=== PATIENT | male | born 1940 | race Caucasian/White ===

== ENCOUNTER 2024-02-13 16:26 | Inpatient (IN) | payer MEDICARE, OTHER, SELFPAY ==
[2024-02-13] VITALS (9 sets, daily range): BP systolic 153–192; BP diastolic 69–86; PULSE 66–74; BMI 31.1; BMI 32.7
--- NOTE | 2024-02-13 14:26 | CON.NEURO ---
Neuro Assessment/Plan
Assessment
IMPRESSIONS/RECOMMENDATIONS:
Abrupt change in speech and light-headedness
? metabolic abnormalities or blood pressure significant changes
no clear focal symptomatology suggestive of stroke. Severity of current speech difficulty is best described as minimal
Plan
Check CAT scan of head (completed)
No clear indication patient would benefit from CT angiogram at this time as the patient's symptomatology would not clearly warrant thrombectomy
Severity of symptoms also would not significantly warrant use of tenecteplase
Check orthostatics
Check blood work for potential metabolic causes
Consider outpatient speech evaluation
Not clear patient should have continued discontinuance of apixaban, discontinued due to plan for shoulder surgery; would not delay shoulder surgery as planned from neurological perspective
Will continue to follow pending results. Thank you.
Consultation
Order
Date of Consultation: 02/13/24
Requesting Provider: Emergency department physician
Reason for Consult: Stroke alert
Subjective/Objective
Subjective Data
Date of Service: February 13, 2024
Left-handed
Patient presented to this hospital's emergency department after sudden onset of speech change. The patient's history is obtained after review of the patient's medical records, discussion with the patient and his who is at bedside. The patient
had been in his usual state of health until several days ago at which time he was diagnosed as having a likely left septic effusion which is planned to be treated by means of surgical intervention in the next 48 hours. As the patient was utilizing
apixaban recently, discontinuance of this therapy within the last 48 hours was undertaken due to the plan for surgery.
In the past 3 hours (approximately 1300 hrs.), the patient began experiencing episodic dizziness associated with decreased speech clarity. The patient has not had prior episodes of either symptomatology previously.
Objective Data
Vital Signs
Pulse Resp Pulse Ox
75 18 98
02/13/24 14:12 02/13/24 14:12 02/13/24 14:12
Patient Allergies
vancomycin Allergy (Verified 02/13/24 14:14)
Unknown
Review of Systems
-
History Source: Patient
All other systems: Reviewed and negative
EENT: Negative Swallowing Difficulty
Respiratory: Negative Trouble Breathing
Cardiac: Negative Chest Pain
Neuro: Dizzy; Negative Headache
Physical Exam
-
General: No Apparent Distress and Appears Stated Age
Eyes: OU Absent Papilledema, Round OU, Avimor Conjunctivae and No Ptosis
HEENT: Anicteric and Moist Mucous Membranes
Neck: Full Range of Motion
Respiratory: No Dyspnea
Cardiac: No JVD
GI: Non-distended
Skin: Other (Surgical scar over left rotator cuff)
Extremities: No Clubbing, No Cyanosis, No Edema and Other (Chronic venous stasis changes bilaterally in lower extremities distally)
Psych: Intact Judgement/Insight
Extended Neurological Exam
Mood & Affect: Mood Unremarkable and Affect Unremarkable
Attention Span & Concentration: Awake, Alert, Interactive and Mild Difficulty with 2 Step Request
Memory: Unremarkable
Tremor: Hand Tremor Absent and Head Tremor Absent
Speech: Quality Unremarkable and Quantity Unremarkable
Cranial Nerve II: Left Eye: Pupillary Reactivity Unremarkable, Pupillary Size Unremarkable and Visual Mcmanus Intact
Cranial Nerve II: Right Eye: Pupillary Reactivity Unremarkable, Pupillary Size Unremarkable and Visual Mcmanus Intact
Cranial Nerves III, IV, : Extraocular Movement: Extraocular Movement Full in all Directions
Cranial Nerve VII: Facial Symmetry: Normal Facial Symmetry
Cranial Nerve VIII: Hearing: Unremarkable Hearing to Normal Conversational Volume
Cranial Nerves IX, X: Palate Movement: Palate Elevation Symmetric
Cranial Nerve XI: Shoulder Shrug: Unremarkable
Cranial Nerve XII: Tongue Protusion: Midline
Muscle Strength, Overall: Full Throughout
Muscle Bulk & Tone: Bulk Unremarkable and Tone Unremarkable
Pronator Drift: No Drift in Upper Extremities
Touch Sensation: Unremarkable
Coordination: [id number] Testing Unremarkable
Gait & Station: Up from Seated Without Problem
Data Reviewed
-
CT Head: Report Reviewed and Image Reviewed
Labs: Report Reviewed
Reviewed with: Physician, Nurse, Patient and Family
Old Records: Summarized
Medications
-
Home Medications
�Medication �Instructions �Recorded
celecoxib 100 mg capsule (Celebrex) 200 mg PO DAILY 04/21/14
levothyroxine 25 mcg tablet 50 mcg PO DAILY 04/21/14
(Synthroid)
meclizine 25 mg tablet 25 mg PO DAILY #30 tabs 04/21/14
metoprolol succinate 50 mg 50 mg PO DAILY 04/21/14
tablet,extended release 24 hr
simvastatin 20 mg tablet 20 mg PO DAILY 04/21/14
warfarin 7.5 mg tablet (Jantoven) 7 mg PO DAILY 04/21/14
penicillin V potassium 500 mg 500 mg PO QID ##56 07/12/15
tablet
hydrocodone 5 mg-acetaminophen 325 1 ea PO Q4HPRN PRN pain #15 tabs 06/20/19
mg tablet ([place])
lidocaine 4 % topical patch 1 patch topical BID PRN pain #10 ea 10/09/22
prednisone 20 mg tablet 40 mg (2 x 20 mg) PO DAILY 4 days 10/09/22
#8 tabs
Past History
Past History
ED Past Medical History: Arrthythmia, HTN, Hypercholesterolemia, [place], Hypothyroidism and Other (sepsis)
ED Past Surgical History: Cardiac (Aortic aneurysm root repair October 2002) and Other (Arthroscopy, bilat knee replacements, left rotator cuff repair. Hernia repair)
Social History
Tobacco: Non-smoker
Alcohol: Occasional
Personal:
Living: with family
Family History
Family History: Other
--- NOTE | 2024-02-13 14:45 | ED.CVA ---
History of Present Illness
General
Chief Complaint: CVA/TIA Symptoms
Time Seen by Provider: 02/13/24 14:33
Onset of Stroke Symptoms
Onset of symptoms known: Yes
Date of onset of symptoms: 02/13/24
Time of onset of symptoms: 13:00
Travel History
Have you had any contact with someone who has COVID-19?: No
Do you have any symptoms of coronavirus? Fever > 100 degrees, chills, cough, shortness of breath, sore throat, loss of taste or smell, muscle aches, or headache?: No
History of Present Illness
History of Present Illness:
Patient presents the emergency department with lightheadedness and slurred speech that is now resolved. States symptoms started around 1 PM today. He denies any visual changes difficulty swallowing. Denies any headache or neck pain. Denies
extremity weakness or clumsiness. Stroke alert called upon arrival to the emergency department patient evaluated by neurology.
Past History
Past History
ED Past Medical History: Arrthythmia, HTN, Hypercholesterolemia, [place], Hypothyroidism and Other (sepsis)
ED Past Surgical History: Cardiac (Aortic aneurysm root repair October 2002) and Other (Arthroscopy, bilat knee replacements, left rotator cuff repair. Hernia repair)
Social History
Tobacco: Non-smoker
Alcohol: Occasional
Personal:
Living: with family
Family History
Family History: Other
Phy Exam
Physical Exam
Physical Exam:
GENERAL APPEARANCE: NAD, well developed/ well nourished
EYES lids/conjunctiva normal
EARS/NOSE/THROAT Mucous membranes moist, uvula midline without oral pharyngeal erythema, exudate or swelling
HEAD/NECK normocephalic atraumatic, neck is supple.
RESPIRATORY respiratory effort normal, speaks in full sentences, no accessory muscle use. Lungs clear to auscultation without rhonchi, wheezes, rales
CARDIAC Regular rate and rhythm, no edema.
ABDOMINAL Soft, ND/NT. No pulsatile masses on exam, rebound tenderness, Sanchez sign or pain over Mcburney's point.
MUSCLES/EXTREMITIES No abnormal range of motion, no swelling.
SKIN Warm, pink and dry. No rashes
NEUROLOGICAL Speech is clear and appropriate. No dysarthria noted. Normal level of consciousness. 5/5 strength in all extremities. No ataxia or dysmetria. CN2-12 intact
PSYCH Normal mood and affect. Judgement/competence is appropriate
Course
Orders/Labs/Results
Orders:
Orders
02/13/24 14:15
CT Head W/o Cont STROKE ALERT Urgent
Reason For Exam: garbled speech
02/13/24 14:39
Complete Blood Count/With Diff Urgent
Comprehensive Metabolic Panel Urgent
PTT Urgent
Prothrombin Time Urgent
TSH Urgent
Comment: ADD ON
Troponin I Urgent
02/13/24 Dinner
Cholesterol Lowering
At Your Request: Limited Participation
Does patient need a safe tray?: No
Cholesterol Lowering: Sodium, 2 Gram
2000 doug/17 CHO Diabetic
02/13/24 15:31
Orthostatic Vital Signs As Directed
Orthostatic VS Frequency: BID
Comment: lying flat x 3 mins then check, seated 3 minutes check, stand 3 mins check
02/13/24 15:34
Urinalysis Reflex To Culture Urgent
Date Specimen was Collected: 02/13/24
Time Specimen was Collected: 15:32
Urine Creatinine Stat
Date Specimen was Collected: 02/13/24
Time Specimen was Collected: 15:32
Urine Potassium Stat
Date Specimen was Collected: 02/13/24
Time Specimen was Collected: 15:32
Urine Sodium Stat
Date Specimen was Collected: 02/13/24
Time Specimen was Collected: 15:32
02/13/24 15:43
Add On- LAB Stat
Tests Added?: TSH
Admit/Transfer Patient As Directed
Co-Sign Provider:
Level of Care: Inpatient admission
Assign to:: Telemetry
Physician / Group: Nora
Diagnosis: Hyponatremia
Reason for Telemetry: Other
Other Reason for Telemetry: Hyponatremia
Date to Stop Telemetry: 02/15/24
Time to Stop Telemetry: 11:00
Reason for Hospitalization: hyponatremia
Expected length of stay greater than two midnights?: Yes
ELOS- Estimated Length of Stay in days: 3
I certify the patient meets the requirements for IP care: Yes
02/13/24 16:00
0.9% Sodium Chloride 500 ml [Nss] 500 ml IV 100 mls/hr
02/13/24 16:01
Code Status As Directed
Resuscitation Status: Full Code
02/13/24 18:28
Bisacodyl [Dulcolax] 10 mg RECTAL [id number] PRN
Dextrose 50%-Water [Dextrose 50% Syringe] 12.5 grams IV [id number] PRN
Docusate W/Senna [Senokot-S] 1 tablet PO BIDPRN PRN
Glucagon [GlucaGen] 1 mg IM PRN PRN
Insulin Aspart Corrective Mod [Novolog Flexpen-Moderate Resistance] See Protocol SC AC
Polyethylene Glycol Powder [Miralax] 17 grams PO DAILYPRN PRN
02/13/24 18:28
Activity As Directed
Activity Level: Out of Bed-Early Mobility
Bedside Glucose Monitoring As Directed
Frequency: AC&HS
Additional Instructions:: Change to q6h if pt on TPN, tube feeding or not eating
Orthostatic Vital Signs As Directed
Orthostatic VS Frequency: q8h
Vital Signs As Directed
Frequency: Per unit guidelines
Ot Eval And Treat Routine
Pt Eval And Treat Routine
Activity Level: Out of Bed-Early Mobility
02/13/24 18:44
Troponin I Q6H
02/13/24 20:00
Apixaban [Eliquis] 5 mg PO BID
02/13/24 21:00
0.9% Sodium Chloride 1000 ml [Nss] 1,000 ml IV 75 mls/hr
02/13/24 22:00
Gabapentin [Neurontin] 100 mg PO TID
Rosuvastatin Calcium [Crestor] 10 mg PO HS
02/14/24 00:28
Troponin I Q6H
02/14/24 06:00
Basic Metabolic Panel IN AM
Glycohemoglobin (HgbA1c) IN AM
TSH IN AM
02/14/24 06:28
Troponin I Q6H
02/14/24 08:00
Levothyroxine [Synthroid] 50 mcg PO DAILY
Metoprolol Xl [Toprol Xl] 50 mg PO DAILY
02/15/24 11:00
DC Protocol for Telemetry ONCE
Abnormal Lab Results
02/13/24
14:39
RBC 4.00 L 10^6/uL
(4.70-6.10)
Hgb 11.2 L g/dL
(13.0-18.0)
Hct 32.2 L %
(39.0-52.0)
Absolute Lymphs (auto) 1.0 L 10^3/uL
(1.2-3.4)
Lymphocytes % 15.8 L %
(20.5-51.1)
Monocytes % 10.0 H %
(1.7-9.3)
PT 15.9 H Sec
(11.4-14.6)
APTT 39.0 H Sec
(23.4-35.0)
Sodium 126 L mmol/L
(135-145)
Chloride 94 L mmol/L
(98-107)
Creatinine 0.6 L mg/dL
(0.7-1.3)
Glucose 160 H mg/dl
(70-99)
02/13/24 14:39
02/13/24 14:39
Vital Signs
Initial and Last Documented VS:
Initial Vital Signs
Pulse Resp Pulse Ox
75 18 98
02/13/24 14:12 02/13/24 14:12 02/13/24 14:12
Last Documented Vital Signs
Temp Pulse Resp BP Pulse Ox
97.3 F 66 18 192/84 96
02/13/24 18:36 02/13/24 18:36 02/13/24 18:36 02/13/24 18:36 02/13/24 18:36
*Critical Care Note
Total Time (30-74mins, 75-104mins- exclusive of procedures): Not Applicable
ED Attending Note
ED Attending Note
ED Attending Note:
Discussed case with neurologist on-call Dr. Yost who saw patient. Feels this is unlikely to be a stroke with very minimal symptoms mostly resolved at this time. Also with accompanying lightheadedness, felt to be more metabolic in nature. CT head
negative for acute etiology
Workup notable for hyponatremia to 126. Uncelar etiology. Adding thyroid studies, urine studies. Will start NSS @100. Patient admitted to hospitalist
-
Portions of this chart may have been created with voice recognition software.� Occasional wrong word or��sound alike� substitutions may have occurred due to the inherent limitations of voice recognition software.
Discharge Plan
Departure
Patient Disposition: Admit
Date of Disposition: 02/13/24
Time of Disposition: 15:36
Admit to: Telemetry
Admit to doctor: Frank
Presentation/result/management discussed w/ accepting MD/DO: Hospitalist
Discharge Problem:
Hyponatremia
Interventions
Interventions:
*Risk Screen - Suicide Last Done: 02/13/24 14:12
*General Assessment Last Done: 02/13/24 14:12
*Neglect/Abuse Screening Last Done: 02/13/24 14:12
ED- Fall Risk Assessment Last Done: 02/13/24 14:50
*ED COVID-19 Vaccine History Last Done: 02/13/24 14:12
*Nursing Disposition Last Done: 02/13/24 18:23
ED- Pulmonary Assessment Last Done: 02/13/24 14:48
ED- Neurological Assessment Last Done: 02/13/24 14:42
ED- Cardiac Assessment Last Done: 02/13/24 18:22
ED Swallowing Screen Last Done: 02/13/24 17:27
Discharge Date and Time
Discharge Date/Time: 02/13/24 18:25
[2024-02-13 14:51] LABS: % Basophils 0.6 % (0-2); % Eosinophils 3.1 % (0-6); % Immature Granulocytes 0.5 % (0-0.5); % Lymphocytes 15.8 % (20.5-51.1); Absolute Eosinophils 0.2 10^3/uL (0-0.7); Absolute Monocytes 0.6 10^3/uL (0.1-0.6); Absolute Neutrophils 4.3 10^3/uL (1.4-6.5); Hematocrit 32.2 % (39.0-52.0); Hemoglobin 11.2 g/dL (13.0-18.0); Mean Corp Hgb Conc. 34.8 g/dL (33.0-37.0); Mean Corpuscular Volume 80.5 fL (80.0-94.0); Mean Platelet Volume 8.8 fL (7.4-10.4); Nucleated Red Blood Cells % 0 % (-); Platelet Count 263 10^3/uL (130-400); Red Cell Dist. Width 13.6 % (11.5-14.5); White Blood Cell Count 6.2 10^3/uL (4.8-10.8)
[2024-02-13 15:02] LABS: INR 1.29; PT 15.9 Sec (11.4-14.6)
[2024-02-13 15:06] LABS: ALT (SGPT) 28 U/L (0-50); AST (SGOT) 33 U/L (17-59); Albumin 3.7 g/dl (3.5-5.0); Alkaline Phosphatase 60 U/L (38-126); Blood Urea Nitrogen 18 mg/dl (9-20); Calcium 9.8 mg/dl (8.4-10.2); Carbon Dioxide 27 mmol/L (22-30); Chloride 94 mmol/L (98-107); Estimated Creatinine Clearance 109 ml/min; Glucose 160 mg/dl (70-99); Potassium 4.4 mmol/L (3.5-5.1); Sodium 126 mmol/L (135-145); Total Bilirubin 0.6 mg/dl (0.2-1.3); Total Protein 6.4 g/dl (6.3-8.2); eGFR > 60.00
[2024-02-13 15:17] LABS: Troponin I < 0.012 ng/ml
[2024-02-13 15:45] LABS: Urine Albumin Negative (Neg - Trace); Urine Bilirubin Negative (Negative); Urine Character Clear (Clear); Urine Color Yellow; Urine Glucose Negative (Negative); Urine Ketone Negative (Negative); Urine Leukocyte Negative (Negative); Urine Nitrite Negative (Negative); Urine Occult Blood Negative (Negative); Urine Urobilinogen Negative (Neg - 1+)
[2024-02-13] MEDS: NSS 500 IV (16:00)
[2024-02-13 16:01] LABS: Urine Potassium 50.7 mmol/L (30-90); Urine Sodium 77 mmol/L (30-90)
--- NOTE | 2024-02-13 16:04 | HPS.HSE ---
Addendum entered and electronically signed by Almaz Melendez MD 02/13/24 16:58:
If the workup positive for stroke and will get an echo for completion of workup.
Original Note:
Family Physician
-
Family Physician: Tanner Shane
Chief Complaint
-
Lightheadedness and slurred speech
History of Present Illness
83-year-old male with history of diabetes, hypertension and osteoarthritis presented to the hospital after noticed sudden onset of slurred speech and feeling dizzy while he was home early in the morning, currently still having some degree of slurred
speech but better than before, also some numbness in the left side of the mouth lasted half an hour but resolved,, stroke alert called and seen by neurology denies this is a neurological of stroke related,
Denies any weakness or numbness in extremity, no vision change or headache, no nausea or vomiting urinary or GI symptom,
Admit has not been eating drinking well. Denies over drinking liquid despite drinking coffee and iced tea as well as soft drinks but admits he is not drinking too much especially from the prior experience she had by drinking too much water while he
was in [place] for visiting his daughter according to the patient daughter presently generalized amount of the fluid he ended up in the ER for hyponatremia.
He is on Eliquis for A-fib which is put on hold for the last 2 to 3 days in preparation for the left shoulder replacement revision surgery.
Workup in the ER including CT brain showed no abnormality, and seen by neurology as mentioned.
Sodium is around 126 as well as chloride is low.
Currently asymptomatic and he is awake, alert and oriented x 3 and holds appropriate conversation
Medical History
Past Medical History
Past Medical History: Reports Other
Additional Past Medical History:
Past medical history reviewed:
Diabetes mellitus
Hypertension
A-fib
Degenerative joint disease
Umbilical hernia
Inguinal hernia
Hypertension
History of CHF
Aortic root aneurysm and repair
Iliac artery aneurysm
Dyslipidemia
Spinal stenosis
Surgical history:
Right inguinal hernia repair
Bilateral total knee replacement
Left shoulder rotator cuff repair
Left hip replaced
Cardioversion
Social: Lives with the family, no smoking alcohol use, independently living with the family.
Family history: Reviewed and noncontributory
Past Surgical History: Reports Other
Social History
Unable to obtain full social history at this time due to: Other
Family History
Family History: Other
Allergies / Home Medications
Allergies reflects when Allergies were last updated in [facility].
Home Medications with original date entered in [facility]
Allergy/Medication List:
Allergies
Allergy/AdvReac Type Severity Reaction Status Date / Time
vancomycin Allergy Unknown Verified 02/13/24 14:14
Home Medications
metoprolol succinate 50 mg tablet,extended release 24 hr 50 mg PO DAILY 04/21/14
apixaban 5 mg tablet 5 mg PO BID 02/13/24
ascorbic acid (vitamin C) 1,000 mg tablet (Vitamin C) 1,000 mg PO HS 02/13/24
ascorbic acid (vitamin C) 500 mg tablet (Vitamin C) 500 mg PO BID 02/13/24
celecoxib 200 mg capsule 200 mg PO HS 02/13/24
coenzyme Q10 100 mg capsule (Co Q-10) 100 mg PO DAILY@1400 02/13/24
gabapentin 100 mg capsule 100 mg PO TID 02/13/24
levothyroxine 50 mcg tablet 50 mcg PO DAILY 02/13/24
metformin 500 mg tablet 1,000 mg PO DAILY 02/13/24
metformin 500 mg tablet 500 mg PO QPM 02/13/24
multivitamin 1 tab PO DAILY 02/13/24
omega [id number]-qha-fish oil 1,000 mg (120 mg-180 mg) capsule (Fish Oil) 1 cap PO TID 02/13/24
rosuvastatin 10 mg tablet 10 mg PO HS 02/13/24
selenium 200 mcg tablet 200 mcg PO DAILY 02/13/24
Review of Systems
-
A 12 point ROS was completed and negative except as noted: Yes
Physical Exam
Vital Signs
Vital Signs
Pulse Resp Pulse Ox
75 18 98
02/13/24 14:12 02/13/24 14:12 02/13/24 14:48
Physical exam:
General: Awake, alert and oriented x3, not in distress and holds appropriate conversation.
HEENT: No active discharge, ecchymosis or bruising, dry lips, tongue and mucous membrane.
Eyes: No discharge or red conjunctiva, no nystagmus, pupils are reactive and equal
Neck:Supple, no JVD no bruit no goiter.
Respiratory: Normal AP contour and diameter, normal chest wall movement, normal respiratory effort, no respiratory distress,
Lungs: Good air entry bilaterally, no wheezing or rhonchi, no rales or crackles
Heart: S1, S2 regular, normal rate, no added sound.
Gastrointestinal: Positive bowel sounds, soft, nontender, no guarding or rigidity or organomegaly
Musculoskeletal: , no chest wall abnormality or tenderness. All joints and extremities have good range of motion, no muscle tenderness or any joint swelling or tenderness.
Extremities: No pitting edema, good peripheral pulses, good range of motion
Skin: Warm and dry, no ulceration, normal color.
Neurological: Awake, alert and oriented x3, cranial nerve II-XII grossly intact, speech clear and comprehensive, good muscle tone, normal sensory and motor function, extension and intention intact, cerebellar sign and
Psychiatric: Normal mood, normal thought and judgment, normal affect,
Physical Exam
General: Other
Laboratory Results
-
02/13/24 14:39
02/13/24 14:39
Laboratory Results
PT 15.9 Sec (11.4-14.6) H 02/13/24 14:39
INR 1.29 02/13/24 14:39
APTT 39.0 Sec (23.4-35.0) H 02/13/24 14:39
Total Bilirubin 0.6 mg/dl (0.2-1.3) 02/13/24 14:39
AST 33 U/L (17-59) 02/13/24 14:39
ALT 28 U/L (0-50) 02/13/24 14:39
Alkaline Phosphatase 60 U/L (38-126) 02/13/24 14:39
Troponin I < 0.012 ng/ml 02/13/24 14:39
CT brain:
1. There is no acute intracranial process.
2. Moderate volume loss. Moderate leukoaraiosis. Slightly increased overall when compared to the previous exam 10 years ago.
Data Reviewed
-
Diagnostic Radiology: Image Personally Visualized and interpreted and Discussed with Patient
CT Scan: Image Personally Visualized and interpreted and Discussed with Patient
Medical Tests (Nuc Med, Echo, EKG etc): Image Personally Visualized and interpreted and Discussed with Patient
Lab Data: Labs Reviewed by me and Discussed with Patient
Old Records: Reviewed
Impression/Plan
-
IMPRESSION:
83-year-old male presented to the hospital
Some speech disturbance and left perioral numbness started suddenly, my concern will be a stroke or TIA specially need to rule them out specially with the sudden nature of the symptoms and associated numbness in the left perioral area and he has
been off his anticoagulation for the last 2 to 3-day.
stroke alert called but seen by neurology do not think this is stroke this is could be metabolic issue and find out to be dehydrated and hyponatremic
Slurred speech, still have mild slurred speech while perioral numbness resolved need to rule out a stroke and TIA, especially with the sudden nature of the symptoms and he has been off Eliquis for the last 2 to 3 days
Left perioral numbness, or
Dizziness, resolved as above possible dehydration and hyponatremia while other causes need to be considered including cardiac arrhythmia.
Hyponatremia, symptomatic
Diabetes mellitus
A-fib anticoagulated with Eliquis
Hypertension
Hypothyroidism
PLAN:
Cardiac monitoring
Neurocheck
I will get an MRI and MRA head and neck to rule out stroke or vascular occlusion with a sudden onset of the nature and being off anticoagulation, another reason we need to rule out a stroke he is going to be going through left shoulder replacement
revision in the future clearly stroke need to be rule out before putting him a sensor and their back procedure.
His procedure initially scheduled for Thursday. Likely will be go aspiration himself mentioned that.
Neurology input appreciated,
Agree with neurology will hold off further imaging unless patient's symptoms return or any other concern.
IV fluids with normal saline 75 mill per hour for 2 bag, if serum osmolarity is low then I will get DC fluids and put him on for
Check urine lites and osmolarity
Hold Celebrex, admit taking on or off of ibuprofen
Recheck labs
PT OT
Orthostatic vital sign check
TSH is pending
Get an EKG.
Encourage oral hydration intake
UA reviewed no evidence of UTI.
Glucoscan monitor blood sugar
All discussed with the patient in detail expressed understanding
CODE STATUS full code
DVT prophylaxis is Eliquis
[2024-02-13 19:03] LABS: Osmolality Serum 278 mOsm/kg (275-300)
[2024-02-13 19:12] LABS: Troponin I < 0.012 ng/ml
[2024-02-13] MEDS: NOVOLOG FLEXPEN-MODERATE RESISTANCE SC (19:36)
[2024-02-13] MEDS: NSS IV ×2 (20:00→21:36)
[2024-02-13] MEDS: NEURONTIN 100 MG PO (20:01)
[2024-02-13] MEDS: ELIQUIS 5 MG PO (20:01)
[2024-02-13] MEDS: CRESTOR 10 MG PO (20:01)
[2024-02-13] MEDS: NSS 1000 IV (20:02)
[2024-02-13 21:18] LABS: Glucose - Point of Care 145 mg/dl (70-99)
[2024-02-13 22:56] LABS: Osmolality Urine 304 mOsm/kg (300-900)
[2024-02-13 23:31] LABS: Urine Sodium 85 mmol/L (30-90)
[2024-02-14] VITALS (9 sets, daily range): BP systolic 143–215; BP diastolic 74–106; PULSE 57–80; BMI 32.7
[2024-02-14] MEDS: NSS IV (05:09)
[2024-02-14 06:16] LABS: Troponin I 0.013 ng/ml
[2024-02-14 06:25] LABS: Blood Urea Nitrogen 16 mg/dl (9-20); Calcium 9.7 mg/dl (8.4-10.2); Carbon Dioxide 23 mmol/L (22-30); Chloride 100 mmol/L (98-107); Estimated Creatinine Clearance 112 ml/min; Glucose 134 mg/dl (70-99); HDL Cholesterol 36 mg/dl; LDL Cholesterol, Calculated 45 mg/dl; Potassium 4.3 mmol/L (3.5-5.1); Sodium 131 mmol/L (135-145); Total Cholesterol 96 mg/dl (50-199); Triglyceride 78 mg/dl (10-149); Very Low Density Lipoprotein 15 mg/dl (0-30); eGFR > 60.00
[2024-02-14 06:49] LABS: TSH 2.91 uIU/ml (0.47-4.68)
[2024-02-14 07:33] LABS: Glucose - Point of Care 152 mg/dl (70-99)
[2024-02-14] MEDS: TOPROL XL 50 MG PO (08:14)
[2024-02-14] MEDS: SYNTHROID 50 MCG PO (08:14)
[2024-02-14] MEDS: NEURONTIN 100 MG PO ×3 (08:14→21:06)
[2024-02-14] MEDS: ELIQUIS PO (08:15)
[2024-02-14] MEDS: NOVOLOG FLEXPEN-MODERATE RESISTANCE 1 UNITS SC ×2 (08:20→12:34)
[2024-02-14 08:46] LABS: Glycohemoglobin (HgbA1c) 7.5 % (4.0-5.6)
[2024-02-14] MEDS: NSS 1000 IV (08:54)
--- NOTE | 2024-02-14 09:03 | W.PN.NEURO.1 ---
Addendum entered and electronically signed by Prateek Yost MD 02/14/24 12:21:
MRI demonstrates acute right ischemic stroke
Original Note:
Today's Communication / Plan
-
Follow MRI of brain results
Continue to follow orthostatics, which are mildly abnormal
Check blood work for potential metabolic causes
Consider outpatient speech evaluation
Would hold apixaban, discontinued due to plan for shoulder surgery if there is a continued plan for left-sided shoulder surgery
Neuro Assessment/Plan
Assessment
IMPRESSIONS/RECOMMENDATIONS:
Abrupt change in speech and light-headedness
? metabolic abnormalities or blood pressure significant changes
no clear focal symptomatology suggestive of stroke. Severity of current speech difficulty is best described as minimal
Plan
Follow MRI of brain results
Continue to follow orthostatics, which are mildly abnormal
Check blood work for potential metabolic causes
Consider outpatient speech evaluation
Would hold apixaban, discontinued due to plan for shoulder surgery if there is a continued plan for left-sided shoulder surgery
Will continue to follow pending results. Thank you.
Subjective/Objective
Subjective Data
Date of Service: February 14, 2024
Objective Data
Vital Signs
Temp Pulse Resp BP Pulse Ox
36.8 C 57 18 182/83 97
02/14/24 08:53 02/14/24 08:53 02/14/24 08:53 02/14/24 08:53 02/14/24 08:53
Lab Results
02/13/24 14:39
02/14/24 05:30
PT 15.9 Sec (11.4-14.6) H 02/13/24 14:39
INR 1.29 02/13/24 14:39
APTT 39.0 Sec (23.4-35.0) H 02/13/24 14:39
Sodium 131 mmol/L (135-145) L 02/14/24 05:30
Potassium 4.3 mmol/L (3.5-5.1) 02/14/24 05:30
BUN 16 mg/dl (9-20) 02/14/24 05:30
Glucose 134 mg/dl (70-99) H 02/14/24 05:30
Calcium 9.7 mg/dl (8.4-10.2) 02/14/24 05:30
LDL Cholesterol, Calc 45 mg/dl 02/14/24 05:30
Patient Allergies
vancomycin Allergy (Verified 02/13/24 14:14)
Unknown
--- NOTE | 2024-02-14 10:15 | W.PN.HOSP.TC ---
Today's Communication/Plan
-
see A/P
Assessment / Plan
Assessment / Plan
HPI: 83-year-old male with history of diabetes, hypertension and osteoarthritis, presented to the hospital after noticed sudden onset of slurred speech and feeling dizzy while he was at home. He also c/o numbness in the left side of the mouth
(lasted half an hour but resolved).
He admits to decreased PO intake.
He is on Eliquis for A-fib which is put on hold for the last 2 to 3 days in preparation for the left shoulder replacement revision surgery.
Workup in the ER including CT brain showed no abnormality, and seen by neurology as mentioned.
Sodium is around 126 as well as chloride is low.
He was asymptomatic in the ED, awake, alert and oriented x 3 and holds appropriate conversation
A/P:
# Dizziness, slurred speech with perioral numbness (resolved) due to acute stroke in the right frontoparietal junction
MRI brain noted 2.5 cm acute nonhemorrhagic infarct in the lateral aspect of the right frontoparietal junction
MRA brain showed no evidence of intracranial branch occlusion, however, there is diminished flow in the distal M1 and proximal M2 segments of the right middle cerebral artery suggesting stenosis/partial occlusion.
UA reviewed no evidence of UTI.
Of note, pt is off PATTERN STAMPER Eliquis in anticipation for upcoming shoulder surgery 02/15
Pt is adamant about proceeding with L shoulder surgery (due to infected hardware needing removal).
discussed with Neuro, Ok to restart anticoagulation, I would use therapeutic Lovenox SQ in place Eliquis given planned shoulder surgery.
Start Lovenox SQ 100 mg BID, first dose 02/14/24 pm
Monitor MS with restarting anticoagulation
For now, allow permissive HTN, could add additional BP meds for better BP control after 24 hours
Neuro on board
PT OT
# Hyponatremia may be due to dehydration, improved after IVF
Observe off additional IVF
# Diabetes mellitus
A1C 7.5 %
# A-fib anticoagulated with Eliquis
pt is off PATTERN STAMPER Eliquis in anticipation for upcoming shoulder surgery 02/15
Substitute with Lovenox SQ as stated above
# Hypertension
Cont PATTERN STAMPER Toprol
For now, allow permissive HTN, could add additional BP meds for better BP control after 24 hours
# Hypothyroidism
TSH WNL at 2.91
# Pending left shoulder replacement/revision due to infected hardware, scheduled for coming Thursday.
Pt declined Eliquis currently
No contraindication to proceed with shoulder surgery per Neuro Dr Yost
CODE STATUS full code
DVT prophylaxis: replace PATTERN STAMPER Eliquis with Lovenox SQ 100 mg BID, first dose 02/14/24 pm
DW RN
called pt's son [phone] several times today, calls not answered.
Called pt's several times too, calls not answered.
Discussed extensively with neuro Dr Yost
total time spent 60 min
Anticipated Discharge: Within 24 hours
Subjective/Interval History
-
Date of Service: February 14, 2024
Objective Data
-
Labs:
Laboratory Results
02/14/24
05:30
Sodium 131 L
Potassium 4.3
Chloride 100
Carbon Dioxide 23
BUN 16
Creatinine 0.6 L
Glucose 134 H
Calcium 9.7
Vital Signs:
Vital Signs
Temp Pulse Resp BP Pulse Ox
36.8 C 57 18 182/83 97
02/14/24 08:53 02/14/24 08:53 02/14/24 08:53 02/14/24 08:53 02/14/24 08:53
I&O
02/13/24 02/14/24 02/15/24
06:59 06:59 06:59
Intake Total 480 / 480
Output Total 300 / 300
Balance 180 / 180
Review of Systems
-
All other systems: Reviewed and negative
Physical Exam
-
General: Well Developed, Well Nourished, No Apparent Distress, Comfortable and Conversant; Negative Respiratory Distress
HEENT: Normocephalic, Atraumatic, Nose Appears Normal and Ears Appear Normal; Negative Oxygen
Respiratory: Clear to Auscultation and Non Labored Respirations; Negative Accessory Resp Muscle Use
Cardiac: Regular Rhythm and S1/S2
GI: Soft, Nontender, Nondistended and Normal Bowel Sounds
Skin: Warm and Dry
Neuro: Awake, Alert, Oriented, AO x 3 and No Motor Deficits
Psych: Calm and Intact Judgement/Insight
Data Reviewed
-
MRI: Report Reviewed by me, Discussed with Physician, Discussed with Nurse and Discussed with Patient
Labs: Labs Reviewed by me
[2024-02-14 11:48] LABS: Glucose - Point of Care 173 mg/dl (70-99)
[2024-02-14] MEDS: APRESOLINE 5 MG IV (14:00)
[2024-02-14 16:45] LABS: Glucose - Point of Care 202 mg/dl (70-99)
--- NOTE | 2024-02-14 17:38 | PTCARENOTE ---
Received patient this am AAOx3. Pt refused am Eliquis. 'pt states that he is having left shoulder shoulder on Thursday at [facility] and is suppose to be holding his eliquis. Dr. Quiñonez made aware. 81 mg Asa ordered for patient with he also
refused to take. ASA was then discontinued by . Dr. Quiñonez saw patient and spoke to patients son who is a cardiac thoracic surgeon. Plan is to start patient on Lovenox SQ at 2100 02/14/24. Pt OOB ambulating in hallway an room. Tolerated diet well.
Pt offered no complaints. Made patient comfortable. Cont to assess patient status.
[2024-02-14] MEDS: NOVOLOG FLEXPEN-MODERATE RESISTANCE 3 UNITS SC (18:15)
[2024-02-14] MEDS: LOVENOX 100 MG SC (21:06)
[2024-02-14] MEDS: CRESTOR 10 MG PO (21:06)
[2024-02-14 21:14] LABS: Glucose - Point of Care 171 mg/dl (70-99)
[2024-02-15] VITALS (7 sets, daily range): BP systolic 154–188; BP diastolic 71–86; PULSE 62–74; O2SAT 98
[2024-02-15 05:16] LABS: Hematocrit 33.1 % (39.0-52.0); Hemoglobin 11.3 g/dL (13.0-18.0); Mean Corp Hgb Conc. 34.1 g/dL (33.0-37.0); Mean Corpuscular Hgb 27.8 pg (27.0-31.0); Mean Corpuscular Volume 81.3 fL (80.0-94.0); Mean Platelet Volume 9.1 fL (7.4-10.4); Platelet Count 261 10^3/uL (130-400); Red Blood Cell Count 4.07 10^6/uL (4.70-6.10); Red Cell Dist. Width 13.8 % (11.5-14.5); White Blood Cell Count 6.2 10^3/uL (4.8-10.8)
[2024-02-15 05:47] LABS: Blood Urea Nitrogen 16 mg/dl (9-20); Calcium 9.8 mg/dl (8.4-10.2); Carbon Dioxide 25 mmol/L (22-30); Chloride 98 mmol/L (98-107); Estimated Creatinine Clearance 96 ml/min; Glucose 129 mg/dl (70-99); Magnesium 1.7 mg/dl (1.6-2.3); Potassium 4.3 mmol/L (3.5-5.1); Sodium 130 mmol/L (135-145); eGFR > 60.00
[2024-02-15 08:22] LABS: Glucose - Point of Care 141 mg/dl (70-99)
[2024-02-15] MEDS: NOVOLOG FLEXPEN-MODERATE RESISTANCE SC ×2 (08:32→17:19)
[2024-02-15] MEDS: LOVENOX 100 MG SC (08:44)
[2024-02-15] MEDS: SYNTHROID 50 MCG PO (08:45)
[2024-02-15] MEDS: TOPROL XL 50 MG PO (08:45)
[2024-02-15] MEDS: NEURONTIN 100 MG PO ×3 (08:45→21:48)
--- NOTE | 2024-02-15 08:50 | W.PN.HOSP.TC ---
Addendum entered and electronically signed by Ebenezer Perez MD 02/15/24 15:49:
Patient now stating his shoulder surgery will be next week. Resume Eliquis, stop therapeutic Lovenox.
Original Note:
Today's Communication/Plan
-
Fluid restrict, trend sodium
Assessment / Plan
Assessment / Plan
HPI: 83-year-old male with history of diabetes, hypertension and osteoarthritis, presented to the hospital after noticed sudden onset of slurred speech and feeling dizzy while he was at home. He also c/o numbness in the left side of the mouth
(lasted half an hour but resolved).
He admits to decreased PO intake.
He is on Eliquis for A-fib which is put on hold for the last 2 to 3 days in preparation for the left shoulder replacement revision surgery.
Workup in the ER including CT brain showed no abnormality, and seen by neurology as mentioned.
Sodium is around 126 as well as chloride is low.
He was asymptomatic in the ED, awake, alert and oriented x 3 and holds appropriate conversation
A/P:
# Dizziness, slurred speech with perioral numbness (resolved) due to acute stroke in the right frontoparietal junction
MRI brain noted 2.5 cm acute nonhemorrhagic infarct in the lateral aspect of the right frontoparietal junction
MRA brain showed no evidence of intracranial branch occlusion, however, there is diminished flow in the distal M1 and proximal M2 segments of the right middle cerebral artery suggesting stenosis/partial occlusion.
UA reviewed no evidence of UTI.
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
Pt is adamant about proceeding with L shoulder surgery (due to infected hardware needing removal).
discussed with Neuro, Ok to restart anticoagulation, I would use therapeutic Lovenox SQ in place Eliquis given planned shoulder surgery.
Start Lovenox SQ 100 mg BID, first dose 02/14/24 pm
Monitor MS with restarting anticoagulation
Will start lisinopril 10 mg twice a day
Neuro on board
PT OT
# Hyponatremia may be due to dehydration, improved after IVF
Patient admits to drinking 1�2 beers a day, 24 ounces of coffee, 16 ounces of tea, as well as water
Urine studies and serum osmolality reviewed, TSH normal, a.m. cortisol normal
Sodium 126 upon admission, improved to 131 with IV fluids
Sodium 130 today, start fluid restriction, trend Na
# Diabetes mellitus
A1C 7.5 %
# A-fib anticoagulated with Eliquis
pt is off MULTI PURPOSE MACHINE OPERATOR Eliquis in anticipation for upcoming shoulder surgery 02/15
Substitute with Lovenox SQ as stated above
# Hypertension
Cont MULTI PURPOSE MACHINE OPERATOR Toprol
Add lisinopril 10 mg twice a day
# Hypothyroidism
TSH WNL at 2.91
# Pending left shoulder replacement/revision due to infected hardware, scheduled for coming Thursday.
Pt declined Eliquis currently
No contraindication to proceed with shoulder surgery per Neuro Dr Yost
CODE STATUS full code
DVT prophylaxis: replace MULTI PURPOSE MACHINE OPERATOR Eliquis with Lovenox SQ 100 mg BID, first dose 02/14/24 pm
DW RN
Total time spent to see the patient on the floor, examine the patient, review data and lab results, discuss treatment plan with patient, nursing staff around 55 minutes.
Physical Exam
General: Obese, no acute distress
HEENT: Normocephalic, Atraumatic, EOMI, MMM
Respiratory: Clear to Auscultation bilaterally
Cardiac: Normal S1/S2, irregularly irregular
GI: Soft, Nontender, Nondistended, Normal Bowel Sounds
Extremities: No Clubbing, Cyanosis
Chronic bilateral lower extremity edema noted
Neuro: Trace dysarthria
Psych: Calm, Cooperative
Derm: Hyperpigmentation of shins reflective of chronic venous stasis dermatitis
Anticipated Discharge: 24 - 48 hours
Subjective/Interval History
-
Date of Service: February 15, 2024
Patient is mildly dysarthric. He is upset that his sodium is low. No fever, no vomiting.
Objective Data
-
Labs:
Laboratory Results
02/15/24
04:14
WBC 6.2
Hgb 11.3 L
Hct 33.1 L
Plt Count 261
Sodium 130 L
Potassium 4.3
Chloride 98
Carbon Dioxide 25
BUN 16
Creatinine 0.7
Glucose 129 H
Calcium 9.8
Vital Signs:
Vital Signs
Temp Pulse Resp BP Pulse Ox
97.8 F 63 18 166/86 97
02/15/24 08:19 02/15/24 08:19 02/15/24 08:19 02/15/24 08:19 02/15/24 08:19
I&O
02/14/24 02/15/24 02/16/24
06:59 06:59 06:59
Intake Total 480 / 480 720 / 720
Output Total 300 / 300
Balance 180 / 180 720 / 720
[2024-02-15 12:26] LABS: Glucose - Point of Care 160 mg/dl (70-99)
[2024-02-15 12:27] LABS: Cortisol, Random 7.3 ug/dl
--- NOTE | 2024-02-15 12:29 | W.PN.NEURO.1 ---
Today's Communication / Plan
-
-Patient will be at a small increased risk of stroke if pursuing major orthopedic surgery for the left shoulder, however the stroke is relatively minor and I feel that the risk is acceptable and small compared to the potential risks of ongoing
shoulder problems including concern for possibly hardware infection
-Do not feel that the surgery would need to be delayed further than 3 days after the stroke onset (02/12) at the earliest which would be 02/15
-Continue with plan for Lovenox in the interim
-Continue his home dose statin LDL is at goal
-Goal normotension
-Neurologic checks and NIH stroke scale
-Speech therapy
Will follow as needed call with questions and concerns
Subjective/Objective
Subjective Data
Date of Service: February 15, 2024
No acute events, discussed the stroke, surgery, medications, speech therapy
Objective Data
Vital Signs
Temp Pulse Resp BP Pulse Ox
97.8 F 63 18 166/86 97
02/15/24 08:19 02/15/24 08:19 02/15/24 08:19 02/15/24 08:19 02/15/24 08:19
Lab Results
02/15/24 04:14
02/15/24 04:14
PT 15.9 Sec (11.4-14.6) H 02/13/24 14:39
INR 1.29 02/13/24 14:39
APTT 39.0 Sec (23.4-35.0) H 02/13/24 14:39
Sodium 130 mmol/L (135-145) L 02/15/24 04:14
Potassium 4.3 mmol/L (3.5-5.1) 02/15/24 04:14
BUN 16 mg/dl (9-20) 02/15/24 04:14
Glucose 129 mg/dl (70-99) H 02/15/24 04:14
Calcium 9.8 mg/dl (8.4-10.2) 02/15/24 04:14
LDL Cholesterol, Calc 45 mg/dl 02/14/24 05:30
Patient Allergies
vancomycin Allergy (Verified 02/13/24 14:14)
Unknown
Review of Systems
-
History Source: Patient
All other systems: Reviewed and negative
Constitutional: No Symptoms
EENT: No Symptoms Reported
Respiratory: No Symptoms
Cardiac: No Symptoms
Abdomen/GI: No Symptoms
Genitourinary: No Symptoms
Musculoskeletal: No Symptoms
Skin: No Symptoms
Neuro: Speech Problem
Endocrine: No Symptoms
Hematologic / Lymphatic: No Symptoms
Allergy / Immunology: No Symptoms
Physical Exam
-
General: Comfortable
Eyes: No Ptosis
HEENT: Normocephalic
Neck: No Bruits Bilaterally
Cardiac: Regular Rhythm
GI: Normal Bowel Sounds
Skin: Unremarkable
Extremities: Other (Left shoulder edema)
Psych: Intact Judgement/Insight
Extended Neurological Exam
Attention Span & Concentration: Awake and Alert
Memory: Unremarkable
Tremor: Hand Tremor Absent
Involuntary Movement: None
Speech: Dysarthric; Negative Expressive Aphasia or Receptive Aphasia
Cranial Nerve II: Left Eye: Pupillary Reactivity Unremarkable and Pupillary Size Unremarkable
Cranial Nerve II: Right Eye: Pupillary Reactivity Unremarkable and Pupillary Size Unremarkable
Cranial Nerves III, IV, : Extraocular Movement: Extraocular Movement Full in all Directions
Cranial Nerve VII: Facial Symmetry: Normal Facial Symmetry
Muscle Strength, Overall: Other (Arm flexion 5/5 bilaterally)
Deep Tendon Reflexes: Trace Throughout
Vibration Sensation: Unremarkable
Data Reviewed
-
CT Head: Report Reviewed and Image Reviewed
Labs: Report Reviewed
[2024-02-15] MEDS: NOVOLOG FLEXPEN-MODERATE RESISTANCE 1 UNITS SC (12:32)
--- NOTE | 2024-02-15 17:13 | CM ---
Alert awake oriented patient who lives with his Caron in a home with 4 steps to enter and 13 steps to bed bathroom.HE is independent in driving and all activities of daily living.Offered VN he declined. CPAP with [facility].
No SNF/[facility] hx
Pharmacy [facility]
PCP Dr Shane
PLAN Home no needs Pt to hace shoulder sx at [facility] in 1 week
[2024-02-15 17:17] LABS: Glucose - Point of Care 131 mg/dl (70-99)
[2024-02-15] MEDS: ZESTRIL 10 MG PO (17:19)
[2024-02-15] MEDS: ELIQUIS 5 MG PO (19:44)
[2024-02-15 21:21] LABS: Glucose - Point of Care 198 mg/dl (70-99)
[2024-02-15] MEDS: CRESTOR 10 MG PO (21:48)
[2024-02-16 03:25] VITALS: BP 136/77
[2024-02-16 04:37] LABS: Hematocrit 34.1 % (39.0-52.0); Hemoglobin 11.6 g/dL (13.0-18.0); Mean Corpuscular Hgb 27.7 pg (27.0-31.0); Mean Corpuscular Volume 81.4 fL (80.0-94.0); Mean Platelet Volume 8.9 fL (7.4-10.4); Platelet Count 248 10^3/uL (130-400); Red Blood Cell Count 4.19 10^6/uL (4.70-6.10); Red Cell Dist. Width 13.9 % (11.5-14.5); White Blood Cell Count 6.3 10^3/uL (4.8-10.8)
[2024-02-16 05:08] LABS: Blood Urea Nitrogen 20 mg/dl (9-20); Calcium 10.1 mg/dl (8.4-10.2); Carbon Dioxide 25 mmol/L (22-30); Chloride 97 mmol/L (98-107); Estimated Creatinine Clearance 96 ml/min; Glucose 137 mg/dl (70-99); Magnesium 1.7 mg/dl (1.6-2.3); Potassium 4.9 mmol/L (3.5-5.1); Sodium 131 mmol/L (135-145); eGFR > 60.00
--- NOTE | 2024-02-16 07:24 | W.PN.HOSP.TC ---
Today's Communication/Plan
-
Medically stable for discharge today
Assessment / Plan
Assessment / Plan
HPI: 83-year-old male with history of diabetes, hypertension and osteoarthritis, presented to the hospital after noticed sudden onset of slurred speech and feeling dizzy while he was at home. He also c/o numbness in the left side of the mouth
(lasted half an hour but resolved).
He admits to decreased PO intake.
He is on Eliquis for A-fib which is put on hold for the last 2 to 3 days in preparation for the left shoulder replacement revision surgery.
Workup in the ER including CT brain showed no abnormality, and seen by neurology as mentioned.
Sodium is around 126 as well as chloride is low.
He was asymptomatic in the ED, awake, alert and oriented x 3 and holds appropriate conversation
A/P:
# Dizziness, slurred speech with perioral numbness (resolved) due to acute stroke in the right frontoparietal junction
MRI brain noted 2.5 cm acute nonhemorrhagic infarct in the lateral aspect of the right frontoparietal junction
MRA brain showed no evidence of intracranial branch occlusion, however, there is diminished flow in the distal M1 and proximal M2 segments of the right middle cerebral artery suggesting stenosis/partial occlusion.
UA reviewed no evidence of UTI.
Of note, pt is off LIFT SUPERVISOR Eliquis in anticipation for upcoming shoulder surgery 02/15
Patient has rescheduled his left shoulder surgery for next week.
Resumed on Eliquis 5 mg twice a day, no need for aspirin per neurology
Started on lisinopril 10 mg twice a day, continue rosuvastatin (LDL 45)
PT/OT�independent, [facility] recommends outpatient therapy as needed
Medically stable for discharge today
# Hyponatremia due to excess fluid intake
Patient admits to drinking 1�2 beers a day, 24 ounces of coffee, 16 ounces of tea, as well as water
Urine studies and serum osmolality reviewed, TSH normal, a.m. cortisol normal
Sodium 126 upon admission, improved to 131 with IV fluids
Sodium improved to 131 with fluid restriction, was 130
Discussed the importance of adhering to a 48 ounce fluid restriction upon discharge, needs repeat BMP with PCP in 1 week
# Diabetes mellitus
A1C 7.5 %
# A-fib anticoagulated with Eliquis
pt is off LIFT SUPERVISOR Eliquis in anticipation for upcoming shoulder surgery 02/15
Substitute with Lovenox SQ as stated above
# Hypertension
Cont LIFT SUPERVISOR Toprol
Added lisinopril 10 mg twice a day
# Hypothyroidism
TSH WNL at 2.91
# Pending left shoulder replacement/revision due to infected hardware, scheduled for coming Thursday.
Pt declined Eliquis currently
No contraindication to proceed with shoulder surgery per Neuro Dr Yost
CODE STATUS full code
DVT prophylaxis: Eliquis
Updated son on phone 02/15
Physical Exam
General: Obese, no acute distress
HEENT: Normocephalic, Atraumatic, EOMI, MMM
Respiratory: Clear to Auscultation bilaterally
Cardiac: Normal S1/S2, irregularly irregular
GI: Soft, Nontender, Nondistended, Normal Bowel Sounds
Extremities: No Clubbing, Cyanosis
Chronic bilateral lower extremity edema noted
Neuro: Trace dysarthria
Psych: Calm, Cooperative
Derm: Hyperpigmentation of shins reflective of chronic venous stasis dermatitis
Anticipated Discharge: Today
Subjective/Interval History
-
Date of Service: February 16, 2024
Patient's dysarthria continues to improve. No fever, no vomiting.
Objective Data
-
Labs:
Laboratory Results
02/16/24
04:20
WBC 6.3
Hgb 11.6 L
Hct 34.1 L
Plt Count 248
Sodium 131 L
Potassium 4.9
Chloride 97 L
Carbon Dioxide 25
BUN 20
Creatinine 0.7
Glucose 137 H
Calcium 10.1
Vital Signs:
Vital Signs
Temp Pulse Resp BP Pulse Ox
98.2 F 56 20 136/77 99
02/16/24 03:25 02/16/24 03:25 02/16/24 03:25 02/16/24 03:25 02/16/24 03:25
I&O
02/15/24 02/16/24 02/17/24
06:59 06:59 06:59
Intake Total 720 / 720 2580 / 2580
Output Total 300 / 300
Balance 720 / 720 2280 / 2280
[2024-02-16 08:00] VITALS: BP 154/69
[2024-02-16 08:29] LABS: Glucose - Point of Care 136 mg/dl (70-99)
[2024-02-16] MEDS: NOVOLOG FLEXPEN-MODERATE RESISTANCE SC (08:30)
[2024-02-16] MEDS: ELIQUIS 5 MG PO (08:30)
[2024-02-16] MEDS: ZESTRIL 10 MG PO (08:31)
[2024-02-16] MEDS: NEURONTIN 100 MG PO (08:31)
[2024-02-16] MEDS: SYNTHROID 50 MCG PO (08:31)
[2024-02-16] MEDS: TOPROL XL 50 MG PO (08:31)
--- NOTE | 2024-02-16 09:15 | PTOTSP ---
Speech Language Pathology
Pt seen for speech and language evaluations. Very mild dysarthria noted characterized by imprecise consonant production and decreased coordination. Slow diadochokinetic (DDK) rates noted. Pt was 100% intelligible in both known and unknown
contexts. Language evaluated via the Quick Aphasia Battery (QAB), form 1. Pt scored WNL on all subtests.
Pt also seen for clinical bedside swallow evaluation. Seen with breakfast tray of regular solids/thin liquids. Adequate mastication, bolus formation, and A-P transit noted with no oral residue. No overt signs of aspiration.
Recommend:
(1) Continue regular solids/thin liquids
(2) Meds as tolerated
(3) OP speech therapy to address dysarthria if desired by pt. Provided brochure.
(4) PAL[facility]TER to continue to follow
[2024-02-16] MEDS: SENOKOT 17.1999999999999993 MG PO (09:36)
--- NOTE | 2024-02-16 12:21 | W.DCSUMMARY ---
Discharge Summary
Discharge Data
Date of Admission: 02/13/24
Date of Discharge: 02/16/24
-
Pending Results: No
Hospital Course
Discharge diagnosis:
Acute nonhemorrhagic stroke
Acute on chronic hyponatremia due to excess fluid intake
Type 2 diabetes, hemoglobin A1c 7.5
Paroxysmal atrial fibrillation on Eliquis
Benign essential hypertension
Hypothyroidism
Left shoulder osteoarthritis, with plans for replacement
Consults: Neurology
Brain MRI:
2.5 cm acute nonhemorrhagic infarct in the lateral aspect of the right frontoparietal junction
Mild diffuse cortical and cerebellar atrophy
Hospital course:
83-year-old male with a past medical history of diabetes, hypertension, osteoarthritis, paroxysmal atrial fibrillation on Eliquis presented with dysarthria and feeling dizzy. Patient was seen in conjunction with neurology. Brain MRI confirmed
acute nonhemorrhagic infarct in the lateral aspect of the right frontoparietal junction. Patient's LDL was 45, he was continued on rosuvastatin. He was seen by PT/OT, was independent. He was seen by [facility] for his dysarthria, and recommended to have
outpatient [facility] treatment as needed. His speech almost normalized by the time he was discharged. Neurology cleared him to resume anticoagulation. He was resumed on Eliquis 5 mg twice a day.
Patient also has benign essential hypertension. He was started on lisinopril 10 mg twice a day, continued on his metoprolol. His blood pressure improved.
Patient was scheduled to have a left shoulder replacement on 02/16/2024. This has been rescheduled for the following week.
Patient was also found to have acute on chronic hyponatremia. Patient's sodium was 128 in September 2022. Patient's sodium on the day of hospital admission is 126. He reports drinking 1�2 beers a day, 24 ounces of coffee, 16 ounces of tea, as well
as water. His hyponatremia is likely due to excess fluid intake. TSH/a.m. cortisol were normal. He was treated with a fluid restriction, his sodium improved to 131 on the day of discharge. He is recommended to continue 48 ounce fluid restriction
upon discharge. He needs to follow-up with his primary care doctor in 1 week for repeat BMP.
Patient's medical conditions have been optimized. He is medically stable for discharge. He needs to follow-up with his primary care doctor in 1 week for a repeat BMP, as well as his orthopedic surgeon.
Disposition: Home self-care
Discharge planning: Required 40-minute
Discharge Plan
-
Patient Disposition: Home (Routine Discharge)
Discharge Diagnosis/Procedures: Acute stroke, acute on chronic hyponatremia, type 2 diabetes, atrial fibrillation on Eliquis, benign essential hypertension
Condition: Good
Diet: Low Fat, Low Cholesterol, Diabetic, Carb Controlled and Restrict fluids to 48 oz
Blood Work: BMP in 1 week with your PCP
Other Services: ST
Activity Restrictions/Additional Instructions:
You were started on lisinopril 10 mg twice a day for high blood pressure.
You have low sodium from drinking too much fluids.
Please adhere to a 48 ounce fluid restriction.
This includes all types of fluid, such as beer, coffee, tea, juice, soda, water, etc.
You need to have a repeat BMP with your primary care doctor 1 week.
Please follow-up with your usual integrity manager and your usual orthopedic surgeon in 3-4 weeks.
Referrals:
Tanner Shane MD [Family Provider] - in one week
Prescriptions:
New
lisinopril 10 mg Tablet
10 mg PO BID Qty: 60 0RF
Continued
metoprolol succinate 50 MG tablet extended release 24 hr
50 mg PO DAILY
multivitamin Tablet
1 tab PO DAILY
celecoxib 200 mg Capsule
200 mg PO HS
metformin 500 mg Tablet
1,000 mg PO DAILY
metformin 500 mg Tablet
500 mg PO QPM
ascorbic acid (vitamin C) [Vitamin C] 1,000 mg Tablet
1,000 mg PO HS
selenium 200 mcg Tablet
200 mcg PO DAILY
ascorbic acid (vitamin C) [Vitamin C] 500 mg Tablet
500 mg PO BID
levothyroxine 50 mcg Tablet
50 mcg PO DAILY@06
gabapentin 100 mg Capsule
100 mg PO TID
coenzyme Q10 [Co Q-10] 100 mg Capsule
100 mg PO DAILY@1400
rosuvastatin 10 mg Tablet
10 mg PO HS
omega 9-ntt-bzy-fish oil [Fish Oil] 1,000 mg (120 mg-180 mg) Capsule
1 cap PO TID
apixaban 5 mg Tablet
5 mg PO BID
Discharge Orders:
Discharge Patient (As Directed); Ordered 02/16/24
Ordered By: Ebenezer Perez
Discharge Date and Time
Discharge Date/Time: 02/16/24 14:51
Print Language: HEBREW
[2024-02-16 12:51] VITALS: BP 158/79
--- NOTE | 2024-02-16 14:13 | CM ---
MD entered order for discharge .
Spoke with and pt ready for dc.
Caron will drive him home .
Offered V he declined.
IMM reviewed he agrees with dc.
PLAN Home no needs
== END 2024-02-16 14:51 | disposition home or self-care (01) | DRG 65 ==
LOC: 4 EAST ACU 16:26
PROVIDERS: Emergency Medicine; Internal Medicine; ADMITTING PHYSICIAN Internal Medicine; ATTENDING PHYSICIAN Family Medicine; CONSULT PHYSICIAN Psychiatry & Neurology Neurology; EMERGENCY PHYSICIAN Emergency Medicine; FAMILY PHYSICIAN Family Medicine
DX: I63.9 Cerebral infarction, unspecified (principal); E87.1 Hypo-osmolality and hyponatremia; E11.9 Type 2 diabetes mellitus without complications; I48.0 Paroxysmal atrial fibrillation; I11.0 Hypertensive heart disease with heart failure; I50.9 Heart failure, unspecified; E03.9 Hypothyroidism, unspecified; M19.012 Primary osteoarthritis, left shoulder; Z79.01 Long term (current) use of anticoagulants
CPT/HCPCS: 70450; 70544; 70548; 70551; 80048; 80053; 80061; 81003; 82533; 82570; 82962; 83036; 83735; 83930; 83935; 84100; 84133; 84300; 84443; 84484; 85025; 85027; 85610; 85730; 92523; 92610; 93005; 97129; 97162; 97166; 97530; 99284; A9585

== ENCOUNTER 2024-02-17 17:09 | Emergency (ER) | payer MEDICARE, OTHER, SELFPAY ==
[2024-02-17] VITALS (7 sets, daily range): BP systolic 127–167; BP diastolic 59–82; BMI 31.6
[2024-02-17 17:41] LABS: Glucose - Point of Care 215 mg/dl (70-99)
[2024-02-17 17:42] LABS: % Basophils 0.4 % (0-2); % Eosinophils 0.5 % (0-6); % Lymphocytes 13.6 % (20.5-51.1); % Monocytes 12.9 % (1.7-9.3); % Neutrophils 71.6 % (42.2-75.2); Absolute Immature Granulocytes 0.1 10^3/uL (0-0.05); Absolute Neutrophils 5.3 10^3/uL (1.4-6.5); Hematocrit 33.9 % (39.0-52.0); Mean Corp Hgb Conc. 35.4 g/dL (33.0-37.0); Mean Corpuscular Volume 79.2 fL (80.0-94.0); Nucleated Red Blood Cells % 0 % (-); Platelet Count 190 10^3/uL (130-400); Red Blood Cell Count 4.28 10^6/uL (4.70-6.10); Red Cell Dist. Width 14.1 % (11.5-14.5); White Blood Cell Count 7.4 10^3/uL (4.8-10.8)
[2024-02-17 18:05] LABS: Blood Urea Nitrogen 30 mg/dl (9-20); Calcium 9.9 mg/dl (8.4-10.2); Carbon Dioxide 22 mmol/L (22-30); Chloride 98 mmol/L (98-107); Estimated Creatinine Clearance 82 ml/min; Glucose 202 mg/dl (70-99); Sodium 128 mmol/L (135-145); eGFR > 60.00
[2024-02-17 18:09] LABS: Troponin I 0.024 ng/ml
--- NOTE | 2024-02-17 18:27 | ED.CVA ---
History of Present Illness
General
Chief Complaint: CVA/TIA Symptoms
Source: patient and spouse
Exam Limitations: none
Time Seen by Provider: 02/17/24 17:57
Onset of Stroke Symptoms
Onset of symptoms known: Yes
Date of onset of symptoms: 02/17/24
Time of onset of symptoms: 16:15
Time pt last seen normal is known: Yes
Date last time pt seen normal: 02/17/24
Time last time pt seen normal: 16:00
Travel History
Have you had any contact with someone who has COVID-19?: No
Do you have any symptoms of coronavirus? Fever > 100 degrees, chills, cough, shortness of breath, sore throat, loss of taste or smell, muscle aches, or headache?: No
History of Present Illness
History of Present Illness:
This is a 83 year old male that is brought in by ambulance with c/o unresponsiveness. Patient states that he was sitting out on the porch dosing. states that they were sitting together and talking. States that the patient kept dosing and she
thought he needed something to drink. States that she went into the house and when she got back she was unable to walk him up. States that his mouth was open and she was slapping his face and he was no responding. Patient states that he just got
home form the hospital yesterday afternoon and he was not sleeping well here and got up at 9:15am today. Denies any fever, chills, chest pain, SOB, abd pain, nausea, vomiting, diarrhea, headache, dizziness, urinary burning.
Past History
Past History
ED Past Medical History: Arrthythmia (Atrial fib), CVA, HTN, Hypercholesterolemia, NIDDM, [place], Hypothyroidism and Other (sepsis, Sleep apnea uses CPAP, Varicose veins, )
ED Past Surgical History: Cardiac (Aortic aneurysm root repair October 2002), Orthopedic (Left rotator cuff repair, Left shoulder reversal implant) and Other (Arthroscopy, bilateral knee replacements, left rotator cuff repair. Hernia repair, Aortic
root repair, Left hip replacement, )
Social History
Tobacco: Non-smoker
Alcohol: Daily (Beer 1-2)
Personal:
Living: with family
Family History
Family History: Other
Review of Systems
Review of Systems
All Other Systems: ROS reviewed and negative except as documented in HPI and ROS
Constitutional: Reports no symptoms; Denies fever or chills
EENT: Reports no symptoms
Respiratory: Reports no symptoms
Cardiac: Reports no symptoms; Denies chest pain
ABD/GI: Reports no symptoms; Denies abdominal pain, nausea, vomiting or diarrhea
: Reports no symptoms; Denies dysuria, frequency or urgency
Musculoskeletal: Reports no symptoms
Skin: Reports no symptoms
Neurological: Reports no symptoms; Denies dizzy or headache
Psychiatric: Reports no symptoms
Phy Exam
General Physical Exam
General Presentation: no apparent distress
General age: appears stated age
General Skin: warm and dry
General Habitus: elderly
General Mental: alert
General Hydration: appears well hydrated
ENT Exam
ENT Exam: TM's normal, pharynx normal and neck supple
Eye Exam
Eye Exam: PERRL and EOMI
Cardiovascular Exam
Cardiovascular Exam: normal peripheral pulses and irregularly irregular
Pulmonary Exam
Pulmonary Exam: lungs clear, no respiratory distress, no rales, chest non tender, no crackles, no rhonchi, no wheezing and no cough
Gastrointestinal Exam
Gastrointestinal Exam: normal bowel sounds, non tender, soft, no organomegaly, no pulsatile mass and non distended
NIH Stroke Score
Level of Consciousness: 0 - Alert
LOC questions: 0-Answers both correctly
LOC Commands: 0-Performs both correctly
Best Gaze: 0-Normal
Visual Mcmanus: 0=Normal, no visual loss
Facial palsy: 0=Normal, symmetrical
Motor - Right Arm: 0=No drift 10 seconds
Motor - Left Arm: 0=No drift 10 seconds
Motor - Right Le-No drift 5 seconds
Motor - Left Le-No drift 5 seconds
Limb Ataxia: 0-Absent
Sensation: 0-Normal
Best Language: 0-No aphasia
Dysarthria: 0-Normal
Extinction and Inattention: 0-No abnormality
Total Score:: 0
Musculoskeletal Exam
Musculoskeletal Exam: full ROM and edema (+1 pitting edema of the lower legs)
Skin Exam
Skin Exam: normal color, warm/dry, no petechia and other (Chronic Carlotta stasis dermatitis, )
Psychiatric Exam
Psychiatric Exam: normal mood/affect
Course
Orders/Labs/Results
Orders:
Orders
02/17/24 17:15
ECG [Electrocardiogram (*1)] Urgent
Reason for Study: TIA/Stroke
02/17/24 17:16
EKG- Treatment ONCE
02/17/24 17:30
Basic Metabolic Panel Urgent
Complete Blood Count/With Diff Urgent
Troponin I Urgent
02/17/24 17:[address] [CT Head W/o Iv Contrast] Urgent
Comment:
Reason For Exam: period of unresponsiveness
02/17/24 18:32
Potassium Urgent
02/17/24 18:35
Urinalysis Reflex To Culture Urgent
02/17/24 20:03
0.9% Sodium Chloride 250 ml [Nss] 250 ml IV BOLUS
02/17/24 20:27
Lactic Acid Urgent
Troponin I Urgent
Blood Culture Q30M
[facility] Source: Blood/Venous
Specimen Description:
Blood Culture Q30M
[facility] Source: Blood/Venous
Specimen Description:
02/17/24 20:28
EKG [Electrocardiogram (*1)] Urgent
Reason for Study: Fatigue / Weakness
Other Reason for Exam: REPEAT
02/17/24 20:29
EKG- Treatment ONCE
Abnormal Lab Results
02/17/24 02/17/24
17:30 17:40
RBC 4.28 L 10^6/uL
(4.70-6.10)
Hgb 12.0 L g/dL
(13.0-18.0)
Hct 33.9 L %
(39.0-52.0)
MCV 79.2 L fL
(80.0-94.0)
Abs Immat Gran (auto) 0.1 H 10^3/uL
(0-0.05)
Absolute Lymphs (auto) 1.0 L 10^3/uL
(1.2-3.4)
Absolute Monos (auto) 1.0 H 10^3/uL
(0.1-0.6)
Immature Gran % 1.0 H %
(0-0.5)
Lymphocytes % 13.6 L %
(20.5-51.1)
Monocytes % 12.9 H %
(1.7-9.3)
Sodium 128 L mmol/L
(135-145)
BUN 30 H mg/dl
(9-20)
Glucose 202 H mg/dl
(70-99)
POC Glucose 215 H mg/dl
(70-99)
02/17/24 17:30
02/17/24 18:32
H/H slightly low. Hyponatremia, Dehydration. Glucose nonfasting. Troponin 0.024
Troponin 0.016, Lactic acid normal at 1.7
Vital Signs
Initial and Last Documented VS:
Initial Vital Signs
Temp Pulse Resp BP Pulse Ox
98.8 F 62 20 141/59 98
02/17/24 17:11 02/17/24 17:11 02/17/24 17:11 02/17/24 17:11 02/17/24 17:11
Last Documented Vital Signs
Temp Pulse Resp BP Pulse Ox
99.0 F 61 19 148/71 97
02/17/24 19:03 02/17/24 21:30 02/17/24 21:30 02/17/24 21:00 02/17/24 21:30
MDM/Problems Addressed
Differential Diagnosis Includes:
Syncope, Dehydration. Coronary event
MDM/Problems Addressed:
This is a 83 year old male that comes in with c/o unresponsiveness according to . States that they were sitting out on the porch and when she came back the patient had his mouth open and she was slapping his face and he would not respond to
here. called 911.
Will check labs. CT head,
Back into see patient and . Explained that his CT is unchanged form the MRI and that his blood work shows that he is dehydrated and his Sodium is slightly low. This could be a combination of some dehydration, being out in the sun and tiredness
form just being in the hospital. Patient states that he wants to go home. Will Repeat Troponin at 8:30pm. Spoke with Son who is a Thoracic surgeon and he would like Blood culture as the patient has an Infection in the left shoulder that he was to
have surgery for but this was postpond due to him having he stroke. Will get cultures. Will also give 250ml of NSS to help with the Dehydration.
Repeat ECG: rate 64, Atrial fib, NOrmal axis, Normal QRS, Nonspecific ST changes, V4, V5, Checked by Dr. Mock.
Back into see patient and . Explained that his Second troponin is normal. Lactic acid is normal and the Blood culture can be obtained by his PCP. Encouraged patient to repeat his Blood work is 2 days to check his sodium level. Follow up with the
family doctor, maintain his fluid restriction. Feel that this could have been dehydrated and him sitting in the sun. Will discharge home.
Chronic conditions affecting care: DM and CAD
Acute Exacerbation and/or Progression of Chronic Illness: DM and CAD
*Radiology
Radiology exam reviewed: radiology read reviewed (CT head-Thin band of decreased density within the right posterior frontal lobe, corresponding to evaluationary changes of focal area of infarction seen on MRI of the brain of Feb 14 2024. This band
of decreased density is new from CT of the head on Feb 13 2024. Moderate diffuse atrophy, stable. ) and other (CT cont- Mild leukomalacia, stable. )
*Pulse Oximetry
Patient hypoxic: no
*EKG
Interpreted by ED Provider?: Yes
Heart Rate: 64
Rate: normal
Rhythm: a-fib
Justin: normal axis
QRS Pattern: normal QRS
Ischemia: non-specific ST changes (I, V4, V5 Checked by Dr. Mock)
*Tobacco Scrap Sifter Interpretation
Rate: normal
Heart Rate: 65
Rhythm: a-fib
*Critical Care Note
Total Time (30-74mins, 75-104mins- exclusive of procedures): Not Applicable
ED Attending Note
-
Portions of this chart may have been created with voice recognition software.� Occasional wrong word or��sound alike� substitutions may have occurred due to the inherent limitations of voice recognition software.
Discharge Plan
Departure
Patient Disposition: Home (Routine Discharge)
Date of Disposition: 02/17/24
Time of Disposition: 22:13
Patient with high blood pressure during this ER visit?: Yes
Condition: Good
Covid-19: Not Applicable
Discharge Problem:
Possible syncope, Dehydration, Hyponatremia
Instructions: Syncope (Fainting) (DC), Dehydration, Adult ED, Hyponatremia, BLOOD PRESSURE
Prescriptions:
No Action
metoprolol succinate 50 MG tablet extended release 24 hr
50 mg PO DAILY
multivitamin Tablet
1 tab PO DAILY
celecoxib 200 mg Capsule
200 mg PO HS
metformin 500 mg Tablet
1,000 mg PO DAILY
metformin 500 mg Tablet
500 mg PO QPM
ascorbic acid (vitamin C) [Vitamin C] 1,000 mg Tablet
1,000 mg PO HS
selenium 200 mcg Tablet
200 mcg PO DAILY
ascorbic acid (vitamin C) [Vitamin C] 500 mg Tablet
500 mg PO BID
levothyroxine 50 mcg Tablet
50 mcg PO DAILY@06
gabapentin 100 mg Capsule
100 mg PO TID
coenzyme Q10 [Co Q-10] 100 mg Capsule
100 mg PO DAILY@1400
rosuvastatin 10 mg Tablet
10 mg PO HS
omega 4-msd-bof-fish oil [Fish Oil] 1,000 mg (120 mg-180 mg) Capsule
1 cap PO TID
apixaban 5 mg Tablet
5 mg PO BID
lisinopril 10 mg Tablet
10 mg PO BID Qty: 60 0RF
Referrals:
UNKNOWN - PT DOES,NOT KNOW [Unknown Provider] -
Activity Restrictions/Additional Instructions:
As discussed, your blood work shows that your are dehydrated and that your sodium level is low. You have been given IV fluids here. Please repeat your labs in 2 days to check your sodium level and follow up with the family doctor. You have had blood
culture done here that can be followed up by the family doctor. This could have been a syncopal episode due to Dehydrated and your BP going low. IF YOU HAVE ANY OTHER CONCERNS PLEASE RETURN TO THE EMERGENCY ROOM.
Interventions
Interventions:
*Risk Screen - Suicide Last Done: 02/17/24 17:43
*General Assessment Last Done: 02/17/24 17:43
*Neglect/Abuse Screening Last Done: 02/17/24 17:43
*ED COVID-19 Vaccine History Last Done: 02/17/24 17:43
ED- Cardiac Assessment Last Done: 02/17/24 17:44
ED- Neurological Assessment Last Done: 02/17/24 17:44
ED- Pulmonary Assessment Last Done: 02/17/24 17:44
Discharge Date and Time
Print Language: ZAMBIAN
[2024-02-17 18:49] LABS: Potassium 4.5 mmol/L (3.5-5.1)
[2024-02-17] MEDS: NSS 250 IV (20:03)
[2024-02-17 20:55] LABS: Lactic Acid 1.7 mmol/L (0.7-2.0)
[2024-02-17 21:10] LABS: Troponin I 0.016 ng/ml
== END 2024-02-17 22:40 | disposition home or self-care (01) ==
LOC: EMR 17:09
PROVIDERS: Clinical Nurse Specialist Family Health; EMERGENCY PHYSICIAN Emergency Medicine; FAMILY PHYSICIAN Family Medicine
DX: E86.0 Dehydration (principal); E87.1 Hypo-osmolality and hyponatremia; I10 Essential (primary) hypertension; I25.10 Atherosclerotic heart disease of native coronary artery without angina pectoris; E11.9 Type 2 diabetes mellitus without complications
CPT/HCPCS: 99285; 96360; 70450; 80048; 82962; 83605; 84132; 84484; 85025; 87040; 93005; 96361

== ENCOUNTER → 2024-02-23 08:08 | Outpatient (REF) | payer MEDICARE, OTHER, SELFPAY | LOC: HWRCS 08:08 | PROVIDERS: ATTENDING PHYSICIAN Physician Assistant Medical; FAMILY PHYSICIAN Family Medicine | DX: I48.21 Permanent atrial fibrillation (principal); I63.9 Cerebral infarction, unspecified | CPT/HCPCS: 93306 ==

== ENCOUNTER 2024-03-01 11:30 | Outpatient (RCR) | payer MEDICARE, OTHER, SELFPAY | END 2024-03-08 08:10 | disposition home or self-care (01) | LOC: RST 11:30 | PROVIDERS: ATTENDING PHYSICIAN Family Medicine | DX: I69.322 Dysarthria following cerebral infarction (principal) | CPT/HCPCS: 92523 ==

== ENCOUNTER → 2024-09-27 08:43 | Outpatient (REF) | payer MEDICARE, OTHER, SELFPAY ==
[2024-09-27 10:04] LABS: % Basophils 0.8 % (0-2); % Eosinophils 5.3 % (0-6); % Immature Granulocytes 0.4 % (0-0.5); % Lymphocytes 25.9 % (20.5-51.1); % Monocytes 10.3 % (1.7-9.3); % Neutrophils 57.3 % (42.2-75.2); Absolute Eosinophils 0.3 10^3/uL (0-0.7); Absolute Lymphocytes 1.4 10^3/uL (1.2-3.4); Absolute Monocytes 0.6 10^3/uL (0.1-0.6); Absolute Neutrophils 3.1 10^3/uL (1.4-6.5); Hematocrit 37.5 % (39.0-52.0); Hemoglobin 12.3 g/dL (13.0-18.0); Mean Corp Hgb Conc. 32.8 g/dL (33.0-37.0); Mean Corpuscular Hgb 29.9 pg (27.0-31.0); Mean Platelet Volume 11.5 fL (7.4-10.4); Nucleated Red Blood Cells % 0 % (-); Platelet Count 145 10^3/uL (130-400); Red Blood Cell Count 4.12 10^6/uL (4.70-6.10); Red Cell Dist. Width 13.8 % (11.5-14.5); White Blood Cell Count 5.3 10^3/uL (4.8-10.8)
[2024-09-27 10:30] LABS: Glycohemoglobin (HgbA1c) 6.4 % (4.0-5.6)
[2024-09-27 14:17] LABS: ALT (SGPT) 32 U/L (0-50); AST (SGOT) 38 U/L (17-59); Albumin 4.3 g/dl (3.5-5.0); Alkaline Phosphatase 36 U/L (38-126); Blood Urea Nitrogen 35 mg/dl (9-20); Calcium 10.2 mg/dl (8.4-10.2); Carbon Dioxide 23 mmol/L (22-30); Chloride 105 mmol/L (98-107); Glucose 135 mg/dl (70-99); Potassium 5.1 mmol/L (3.5-5.1); Sodium 138 mmol/L (135-145); Total Bilirubin 0.9 mg/dl (0.2-1.3); Total Protein 6.6 g/dl (6.3-8.2); eGFR > 60.00
== END ==
LOC: REG 08:43
PROVIDERS: ATTENDING PHYSICIAN Family Medicine; OTHER PHYSICIAN Internal Medicine Nephrology; REFERRING PHYSICIAN Nurse Practitioner Family
DX: E87.1 Hypo-osmolality and hyponatremia (principal); R73.03 Prediabetes; I10 Essential (primary) hypertension; Z01.818 Encounter for other preprocedural examination
CPT/HCPCS: 36415; 80053; 83036; 85025

== ENCOUNTER → 2024-10-10 09:01 | Outpatient (REF) | payer MEDICARE, OTHER, SELFPAY | LOC: RAD 09:01 | PROVIDERS: ATTENDING PHYSICIAN Family Medicine | DX: C79.51 Secondary malignant neoplasm of bone (principal) | CPT/HCPCS: 71270; 74178; 78306; A9503; Q9967 ==

== ENCOUNTER → 2025-02-22 09:58 | Outpatient (REF) | payer MEDICARE, OTHER, SELFPAY | LOC: HWRAD 09:58 | PROVIDERS: ATTENDING PHYSICIAN Physician Assistant; FAMILY PHYSICIAN Family Medicine | DX: I72.3 Aneurysm of iliac artery (principal); I71.43 Infrarenal abdominal aortic aneurysm, without rupture | CPT/HCPCS: 76770 ==

== ENCOUNTER → 2025-02-24 11:22 | Outpatient (REF) | payer MEDICARE, OTHER, SELFPAY | LOC: RCS 11:22 | PROVIDERS: ATTENDING PHYSICIAN Physician Assistant; FAMILY PHYSICIAN Family Medicine | DX: I48.21 Permanent atrial fibrillation (principal); I77.810 Thoracic aortic ectasia; Z95.2 Presence of prosthetic heart valve; I34.0 Nonrheumatic mitral (valve) insufficiency | CPT/HCPCS: 93306 ==

== ENCOUNTER → 2025-06-07 10:24 | Outpatient (REF) | payer MEDICARE, OTHER, SELFPAY | LOC: HWRAD 10:24 | PROVIDERS: ATTENDING PHYSICIAN Internal Medicine Cardiovascular Disease; FAMILY PHYSICIAN Family Medicine | DX: I63.9 Cerebral infarction, unspecified (principal) | CPT/HCPCS: 71250 ==